=== PATIENT | male | born 1960 | race Caucasian/White ===

== ENCOUNTER 2021-04-30 23:26 | Inpatient (IN) ==
[2021-05-01] MEDS ORDERED: Heparin 1,000 UNIT/ML 10 ml (10,000 UNITS) CATHLAB/DIALYSIS ONE ×2 (00:13→01:37)
[2021-05-01] MEDS ORDERED: Heparin 2 UNITS/ML 1000 mls 1,000 ML IV ONE (00:42)
[2021-05-01] MEDS ORDERED: Eptifibatide IV (Load dose) 2 MG/ML 10 ml VIAL ONE (00:57)
[2021-05-01] MEDS ORDERED: Iohexol 350 (CONTRAST) 200 ML MDV IV ONE (00:58)
[2021-05-01] MEDS ORDERED: fentaNYL 100 mcg/2 ml 50 MCG/ML VIAL ONE (01:24)
[2021-05-01] MEDS ORDERED: Ondansetron 4 mg VIAL 2 MG/ML 2 ml VIAL IV PRN (02:05)
[2021-05-01] MEDS ORDERED: NS 0.9% 1000 ml BAG 1,000 ML IV SCH (02:15)
[2021-05-01 03:15] LABS: Rapid COVID-19 Molecular Undetected (Undetected)
[2021-05-01 04:19] LABS: ABS Eosinophils 0.1 10^3/ul (0-0.6); ABS Monocytes 0.5 10^3/ul (0-0.8); ABS Neutrophils 8.3 10^3/ul (1.5-7.7); Eosinophil % 0.6 %; Hematocrit 32 % (42-52); Hemoglobin 10.4 g/dL (14.0-18.0); Lymphocyte % 18.7 %; Mean Corpuscular HGB Conc 32 g/dL (31-36); Mean Corpuscular Hemoglobin 24 pg (27-31); Mean Corpuscular Volume 76 fL (80-94); Mean Platelet Volume 9.2 fL (7.4-10.4); Platelet Count 307 10^3/uL (150-450); Red Blood Count 4.29 10^6 /uL (4.18-5.48); Red Cell Distribution Width 16 % (10-15); White Blood Count 10.9 10^3/uL (3.5-10.8)
[2021-05-01 04:34] LABS: Albumin 3.3 g/dL (3.2-5.2); Albumin/Globulin Ratio 1.3 (1-3); Calcium 7.6 mg/dL (8.6-10.3); Globulin 2.6 g/dL (2-4); HDL Cholesterol 33.4 mg/dL; Potassium 3.6 mmol/L (3.5-5.0); Total Bilirubin 0.4 mg/dL (0.2-1.0); Total Protein 5.9 g/dL (6.4-8.9)
[2021-05-01 07:57] LABS: Magnesium 1.8 mg/dL (1.9-2.7); Phosphorus 3.9 mg/dL (2.5-5.0)
[2021-05-01] MEDS ORDERED: Morphine 2 MG/ML SYRINGE IV ONE (08:00)
[2021-05-01] MEDS ORDERED: Morphine 2 MG/ML SYRINGE ONE (08:01)
[2021-05-01] MEDS ORDERED: HYDROmorphone 0.5 MG/0.5 ML SYRINGE IV SLOW PU PRN (08:53)
[2021-05-01] MEDS ORDERED: HYDROmorphone 0.5 MG/0.5 ML SYRINGE ONE (08:59)
[2021-05-01] MEDS: Solifenacin 10 mg TAB (NF) PO SCH (09:03)
[2021-05-01] MEDS ORDERED: Potassium Chlor 20 meq TAB.ER PO ONE (09:19)
[2021-05-01] MEDS ORDERED: Magnesium Sulfate 2 gm BAG 2 GM/50 ML BAG IVPB ONE (09:19)
[2021-05-01] MEDS ORDERED: Magnesium Sulfate 2 gm BAG 2 GM/50 ML BAG ONE (09:49)
[2021-05-01] MEDS ORDERED: Perflutren Lipid Microsphere 3 ML VIAL ONE (10:48)
[2021-05-01] MEDS ORDERED: Nitro 2% OINT (Nitroglycerin) 1 INCH/PAK TOPICAL ONE (13:08)
[2021-05-02 05:06] LABS: Hematocrit 35 % (42-52); Hemoglobin 11.2 g/dL (14.0-18.0); Mean Corpuscular HGB Conc 32 g/dL (31-36); Mean Corpuscular Hemoglobin 24 pg (27-31); Mean Corpuscular Volume 75 fL (80-94); Mean Platelet Volume 9.1 fL (7.4-10.4); Platelet Count 306 10^3/uL (150-450); Red Blood Count 4.62 10^6 /uL (4.18-5.48); Red Cell Distribution Width 17 % (10-15); White Blood Count 6.9 10^3/uL (3.5-10.8)
[2021-05-02 05:23] LABS: Calcium 8.8 mg/dL (8.6-10.3); Phosphorus 3.1 mg/dL (2.5-5.0); Potassium 4.4 mmol/L (3.5-5.0)
[2021-05-02] MEDS: Solifenacin 10 mg TAB (NF) PO SCH (10:32)
[2021-05-03] MEDS: NS 0.9% 1000 ml BAG 1,000 ML IV SCH ×2 (00:28→16:36)
[2021-05-03 04:51] LABS: Activated Partial Thrombo Time 25.7 seconds (26.0-38.0); INR 1.14 (0.86-1.15)
[2021-05-03] MEDS ORDERED: Clindamycin 900 MG/D5W BAG 900 MG/50 ML BAG IVPB ONE (08:00)
[2021-05-03] MEDS ORDERED: Lidocaine 1% VIAL 10 MG/ML VIAL ONE (08:36)
[2021-05-03] MEDS ORDERED: Midazolam 5 mg/5 ml VIAL 1 mg/ml 5 ml VIAL (5 mg) ONE (08:36)
[2021-05-03] MEDS ORDERED: fentaNYL 100 mcg/2 ml 50 MCG/ML VIAL ONE (08:36)
[2021-05-04 12:15] VITALS: BP 103/71
== END 2021-05-04 13:25 | disposition home or self-care (01) | DRG 174 ==
LOC: ED 23:26 → SDS 23:42 → ICU 05-01 02:34 → MEDTELE 05-03 16:21
PROVIDERS: ADMIT Internal Medicine; ATTEND Internal Medicine